=== PATIENT | female | born 1960 | race Caucasian/White ===

== ENCOUNTER 2020-02-19 09:33 | Emergency (ER) | payer BC ==
[~2020-02-19] VITALS: Ht 162.6 cm; Wt 45.5 kg
[2020-02-19] MEDS ORDERED: ondansetron 4mg rapidly disintigrating tab PO ONE (10:05)
[2020-02-19] MEDS ORDERED: loperamide 2mg capsule PO ONE (10:30)
[2020-02-19] MEDS ORDERED: pantoprazole 40mg Tablet.DR PO ONE (10:30)
[2020-02-19] MEDS ORDERED: famotidine 20mg tablet PO ONE (10:30)
[2020-02-19] MEDS ORDERED: PANT-47 PO (11:49)
[2020-02-19] MEDS ORDERED: LOPE2CAP PO (11:49)
[2020-02-19] MEDS ORDERED: ONDA8TAB6 PO (11:49)
[2020-02-19 12:04] VITALS: BP 138/52
== END 2020-02-19 12:06 | disposition home or self-care (01) ==
LOC: ER 09:34
DX: R11.2 Nausea with vomiting, unspecified (principal); R19.7 Diarrhea, unspecified; F17.200 Nicotine dependence, unspecified, uncomplicated; Z91.013 Allergy to seafood; Z79.899 Other long term (current) drug therapy
CPT/HCPCS: 93005; 99284